=== PATIENT | male | born 1990 | race African-American/Black ===

== ENCOUNTER 2017-03-07 21:51 | Emergency (ER) | payer MEDICAID, OTHER ==
[2017-03-07] MEDS ORDERED: DOCUSATE SODIUM 100 MG CAPSULE LFT_EAR ONE (22:20)
--- NOTE | 2017-03-07 22:25 | ER Document Report ---
ED ENT - General Chief Complaint: Bilateral ear pain Stated Complaint: EAR PAIN Time Seen by Provider: 03/07/17 22:14 Mode of Arrival: Ambulatory Information source: Patient Notes: 26-year-old male presents to ED for bilateral ear pain. He states he was trying to clean his ears with straight peroxide. States that he got his right ear cleaned out and it feels better now but the left ear still feels like it is full and has pain. TRAVEL OUTSIDE OF THE [place] IN LAST 30 DAYS: No - HPI Patient complains to provider of: Ear problem Onset: Yesterday Onset/Duration: Gradual Quality of pain: Achy, Dull Severity: Mild Pain Level: 2 Location of pain: Ears Associated symptoms: Other - cerumen impaction Similar symptoms previously: Yes Recently seen / treated by doctor: No - Related Data Allergies/Adverse Reactions: No Known Allergies Allergy (Unverified 03/07/17 22:00) Past Medical History - General Information source: Patient - Social History Smoking Status: Former Smoker Cigarette use (# per day): No Chew tobacco use (# tins/day): No Smoking Education Provided: No Frequency of alcohol use: Occasional Drug Abuse: None Occupation: student Lives with: Parents Family History: DM. denies: Arthritis, CAD, COPD, CVA, Hyperlipidemia, Hypertension, Malignancy, Thyroid Disfunction Patient has suicidal ideation: No Patient has homicidal ideation: No - Past Medical History Cardiac Medical History: Reports: None Pulmonary Medical History: Reports: None EENT Medical History: Reports: None Neurological Medical History: Reports: None Endocrine Medical History: Reports: None Renal/ Medical History: Reports: None Malignancy Medical History: Reports None GI Medical History: Reports: None Musculoskeltal Medical History: Reports None Skin Medical History: Reports None Psychiatric Medical History: Reports: None Traumatic Medical History: Reports: None Infectious Medical History: Reports: None Review of Systems - Review of Systems Constitutional: No symptoms reported EENT: Ear pain - left greater than right Cardiovascular: No symptoms reported Respiratory: No symptoms reported Gastrointestinal: No symptoms reported Genitourinary: No symptoms reported Male Genitourinary: No symptoms reported Musculoskeletal: No symptoms reported Skin: No symptoms reported Hematologic/Lymphatic: No symptoms reported Neurological/Psychological: No symptoms reported Physical Exam - Vital signs Vitals: Temp Pulse Resp BP Pulse Ox 98.0 F 73 16 121/84 97 03/07/17 22:00 07/09/17 22:00 03/07/17 22:00 03/07/17 22:00 03/07/17 22:00 Interpretation: Normal - General General appearance: Appears well, Alert - HEENT Head: Normocephalic, Atraumatic Eyes: Normal Pupils: PERRL Ears: Normal External canal: Cerumen impaction - left Tympanic membrane: Normal - not visible on left will re examin after removal of impaction Sinus: Normal Nasal: Normal Mouth/Lips: Normal Mucous membranes: Normal Pharynx: Normal Neck: Normal - Respiratory Respiratory status: No respiratory distress Chest status: Nontender Breath sounds: Normal Chest palpation: Normal - Cardiovascular Rhythm: Regular Heart sounds: Normal auscultation Murmur: No - Abdominal Inspection: Normal Distension: No distension Bowel sounds: Normal Tenderness: Nontender Organomegaly: No organomegaly - Back Back: Normal, Nontender - Extremities General upper extremity: Normal inspection, Nontender, Normal color, Normal ROM , Normal temperature General lower extremity: Normal inspection, Nontender, Normal color, Normal ROM , Normal temperature, Normal weight bearing. No: Justine's sign - Neurological Neuro grossly intact: Yes Cognition: Normal Orientation: AAOx4 [place] Coma Scale Eye Opening: Spontaneous Airam Coma Scale Verbal: Oriented Airam Coma Scale Motor: Obeys Commands Airam Coma Scale Total: 15 Speech: Normal Motor strength normal: LUE, RUE, LLE, RLE Sensory: Normal - Psychological Associated symptoms: Normal affect, Normal mood - Skin Skin Temperature: Warm Skin Moisture: Dry Skin Color: Normal Course - Re-evaluation Re-evalutation: 03/07/17 23:42 Colace was instilled into the left ear left to sit for 15 minutes the ear was then irrigated with warm water and peroxide. This cerumen impaction was removed patient states he is feeling much better will be discharged home to follow-up with his primary doctor. Patient was given instructions on home care for cleaning his ears and provided with a bulb syringe. - Vital Signs Vital signs: Temp Pulse Resp BP Pulse Ox 98.0 F 73 16 121/84 97 03/07/17 22:00 03/07/17 22:00 03/07/17 22:00 03/07/17 22:00 03/07/17 22:00 Discharge - Discharge Clinical Impression: Impacted cerumen of left ear Condition: Stable Disposition: HOME, SELF-CARE Instructions: Family Physicians / Practices Additional Instructions: Cerumen Impaction The physician found a severe buildup of earwax in your ear canal, called a cerumen impaction. A large plug of wax can cause earache, decreased hearing, or itching. It can even lead to infection of the outer ear. An impaction of earwax can be removed by the physician using special instruments, or can be irrigated out using a stream of water (often a little of both is required). Some less severe impactions are removed using ear drops that dissolve wax. In the future, don't get soap in your ear canal. Soap doesn't remove wax - - it simply hardens it in place. Don't use cotton swabs. These just push the wax into large clumps, where it doesn't flow out normally. Dust and smoke also contribute to wax buildup. Earwax softening drops are available without prescription, and can be used periodically. Contact the doctor if you develop decreased hearing, earache, drainage from the ear, or severe headache. FOLLOW-UP CARE: If you have been referred to a physician for follow-up care, call the physician s office for an appointment as you were instructed or within the next two days. If you experience worsening or a significant change in your symptoms, notify the physician immediately or return to the Emergency Department at any time for re-evaluation. Forms: Return to Work
[2017-03-07 23:48] VITALS: BP 117/75
== END 2017-03-07 23:44 | disposition home or self-care (01) ==
LOC: ER 21:51
DX: H61.22 Impacted cerumen, left ear (principal); Z87.891 Personal history of nicotine dependence
CPT/HCPCS: 99282